=== PATIENT | male | born 1990 | race Caucasian/White ===

== ENCOUNTER 2017-11-30 08:01 | Emergency (ER) | payer OTHER ==
--- NOTE | 2017-11-30 08:04 | ER Report ---
History and Physical Time Seen By : 08:04 HPI/ROS 27-year-old male who recently moved to [place] to work at the [employer] [facility] presents to the emergency department with pain in his right flank. He states that he was diagnosed with a 7 mm ureteral calculi approximately 4 days prior to moving. He states that he was trying to hold off on follow-up until his [employer] insurance started this upcoming week. However the pain got so severe early this morning that he made the decision to come to the emergency department. He was diagnosed in his home in [place]. He was placed on Flomax and Vicodin for the pain. He also feels tremendous pressure when trying to urinate. He denies fever or chills. No dysuria or gross hematuria. No abdominal pain. Remainder of the 14 system rev: Yes Allergies: Coded Allergies: No Known Drug Allergies (Unverified , 11/30/17) Home Meds Active Scripts Hydrocodone Bit/Acetaminophen (HYDROCODON-ACETAMINOPHEN 5-325) 1 Each Tablet, 1 EACH PO Q4H PRN for PAIN, #12 TAB 0 Refills Prov:ALFA MENDENHALL MD 11/30/17 Ketorolac Tromethamine (KETOROLAC TROMETHAMINE) 10 Mg Tab, 10 MG PO Q6H PRN for PAIN, #12 TAB 0 Refills Prov:ALFA MENDENHALL MD 11/30/17 Reported Medications Promethazine Hcl (PROMETHAZINE HCL) 25 Mg Tablet, 25 MG PO PRN, TAB 11/30/17 Ibuprofen (IBUPROFEN) 800 Mg Tablet, 1 TAB PO Q8H, TAB 11/30/17 Hydrocodone Bit/Acetaminophen (HYDROCODON-ACETAMINOPHEN 5-325) 1 Each Tablet, 1 EACH PO PRN, TAB 11/30/17 Tamsulosin Hcl (FLOMAX) 0.4 Mg Cap.er.24h, 0.4 MG PO QDAY, CAP 11/30/17 Reviewed Nurses Notes: Yes Old Medical Records Reviewed: Yes Hx Smoking: No Smoking Status: Never Smoker Exposure to Second Hand Smoke?: No Hx Substance Use Disorder: No Hx Alcohol Use: No Constitutional Vital Sign - Last 24 Hours 11/30/17 11/30/17 11/30/17 11/30/17 08:06 08:07 08:30 08:31 Temp 97.3 Pulse 81 78 Resp 24 B/P (MAP) 147/102 147/102 (117) 143/98 (113) Pulse Ox 94 98 O2 Delivery Room Air 11/30/17 11/30/17 11/30/17 11/30/17 08:48 09:00 09:01 09:30 B/P (MAP) 147/98 (114) 129/85 (100) 130/83 (99) Pulse Ox 93 11/30/17 11/30/17 11/30/17 11/30/17 09:31 10:00 10:05 10:30 Pulse 86 94 B/P (MAP) 128/80 (96) 123/85 (98) Pulse Ox 91 95 11/30/17 11/30/17 11/30/17 11/30/17 10:35 11:00 11:05 12:34 Pulse 85 104 B/P (MAP) 112/74 (87) 126/82 (97) Pulse Ox 91 94 11/30/17 13:00 B/P (MAP) 129/73 (91) Physical Exam General Appearance: The patient is alert, has no immediate need for airway pr otection and no current signs of toxicity. Eyes: Pupils equal and round no injection. Respiratory: Chest is non tender, lungs are clear to auscultation. Cardiac: regular rate and rhythm Gastrointestinal: Abdomen is soft and non tender, no masses, bowel sounds normal. Musculoskeletal: Right flank TTP Extremities have full range of motion and are non tender. Skin: No rashes or lesions. DIFFERENTIAL DIAGNOSIS: After history and physical exam differential diagnosis was considered for back pain including but not limited to muscular pain, herniated disc, spine fracture, intra-abdominal causes, kidney stone, and urinary tract infection. Medical Decision Making Data Points Laboratory Hematology Test 11/30/17 12:10 Urine Color Yellow Urine Clarity Clear Urine pH 5.0 pH (4.8-9.5) Urine Specific Ulmer 1.011 Urine Protein Negative mg/dL (NEGATIVE) Urine Glucose (UA) Negative mg/dL (NEGATIVE) Urine Ketones 20 mg/dL (NEGATIVE) Urine Blood Moderate (NEGATIVE) Urine Nitrite Negative (NEGATIVE) Urine Bilirubin Negative (NEGATIVE) Urine Urobilinogen Negative mg/dL (0.2-1.9) Urine Leukocyte Esterase Negative (NEGATIVE) Urine RBC 1 /HPF (0-2/HPF) Urine WBC 1 /HPF (0-5/HPF) Urine Squamous Epithelial Cells Moderate /LPF (</=FEW) Urine Bacteria Negative /HPF (NONE-FEW) Urine Hyaline Casts Few /LPF (NONE-FEW) Urine Mucus Few /HPF (NONE-FEW) Chemistry Test 11/30/17 12:10 Urine Color Yellow Urine Clarity Clear Urine pH 5.0 pH (4.8-9.5) Urine Specific Ulmer 1.011 Urine Protein Negative mg/dL (NEGATIVE) Urine Glucose (UA) Negative mg/dL (NEGATIVE) Urine Ketones 20 mg/dL (NEGATIVE) Urine Blood Moderate (NEGATIVE) Urine Nitrite Negative (NEGATIVE) Urine Bilirubin Negative (NEGATIVE) Urine Urobilinogen Negative mg/dL (0.2-1.9) Urine Leukocyte Esterase Negative (NEGATIVE) Urine RBC 1 /HPF (0-2/HPF) Urine WBC 1 /HPF (0-5/HPF) Urine Squamous Epithelial Cells Moderate /LPF (</=FEW) Urine Bacteria Negative /HPF (NONE-FEW) Urine Hyaline Casts Few /LPF (NONE-FEW) Urine Mucus Few /HPF (NONE-FEW) Urinalysis Test 11/30/17 12:10 Urine Color Yellow Urine Clarity Clear Urine pH 5.0 pH (4.8-9.5) Urine Specific Ulmer 1.011 Urine Protein Negative mg/dL (NEGATIVE) Urine Glucose (UA) Negative mg/dL (NEGATIVE) Urine Ketones 20 mg/dL (NEGATIVE) Urine Blood Moderate (NEGATIVE) Urine Nitrite Negative (NEGATIVE) Urine Bilirubin Negative (NEGATIVE) Urine Urobilinogen Negative mg/dL (0.2-1.9) Urine Leukocyte Esterase Negative (NEGATIVE) Urine RBC 1 /HPF (0-2/HPF) Urine WBC 1 /HPF (0-5/HPF) Urine Squamous Epithelial Cells Moderate /LPF (</=FEW) Urine Bacteria Negative /HPF (NONE-FEW) Urine Hyaline Casts Few /LPF (NONE-FEW) Urine Mucus Few /HPF (NONE-FEW) ED Course/Re-evaluation ED Course 6 mm ureteral calculi found on CT scan. The patient's pain was relieved with Toradol, Zofran, and morphine. He was having difficulty urinating throughout his stay. He stated that he felt tremendous pressure on his bladder. After 2 L of normal saline and taking by mouth fluids, the patient was able to urinate. After urinating he states that his pain was relieved. I think he likely passed a stone in the emergency department. I will give him a refill of his medications in case his pain returns. Otherwise follow-up with a urologist. Decision to Disposition Date: Nov 30, 2017 Decision to Disposition Time: 12:52 Depart Departure Latest Vital Signs Vital Signs Date Time Temp Pulse Resp B/P (MAP) Pulse Ox O2 Delivery O2 Flow Rate FiO2 11/30/17 13:00 129/73 (91) 11/30/17 11:05 104 94 11/30/17 08:06 97.3 24 Room Air Impression: Primary Impression: Ureteral stone with hydronephrosis Condition: Improved Disposition: HOME OR SELF-CARE New Scripts Hydrocodone Bit/Acetaminophen (HYDROCODON-ACETAMINOPHEN 5-325) 1 Each Tablet 1 EACH PO Q4H PRN for PAIN, #12 TAB 0 Refills Prov: ALFA MENDENHALL MD 11/30/17 Ketorolac Tromethamine (KETOROLAC TROMETHAMINE) 10 Mg Tab 10 MG PO Q6H PRN for PAIN, #12 TAB 0 Refills Prov: ALFA MENDENHALL MD 11/30/17 Patient Instructions: Ureteral Stones (ED) ALFA MENDENHALL MD Nov 30, 2017 08:04
[2017-11-30] MEDS ORDERED: ONDANSETRON 4 MG/2 ML VIAL IVP ONE (08:05)
[2017-11-30] MEDS ORDERED: KETOROLAC 30 MG/ML VIAL IVP ONE (08:05)
[2017-11-30] MEDS ORDERED: NS(*) 0.9% 1000 ML BAG 1,000 ML IV ONE (08:05)
[2017-11-30] MEDS ORDERED: MORPHINE 4 MG/ML SDV IVP ONE (08:25)
--- NOTE | 2017-11-30 09:07 | RADIOLOGY IMAGING REPORT ---
FACILITY: [facility] [place] PATIENT NAME: Rajeev Del Valle : 1990 MR: [id number] V: [id number] EXAM DATE: ORDERING PHYSICIAN: ALFA MENDENHALL TECHNOLOGIST: [place] [facility] [place] Rajeev Del Valle : 1990 Visit/Account:[id number] Date of Sevice: 11/30/2017 ABDOMEN/PELVIS W/O CONTRAST COMPARISONS: None. ADDITIONAL PERTINENT HISTORY: Right-sided flank pain consistent with renal stone. TECHNIQUE: Multiple axial images are obtained from the lung bases through the lesser trochanters with out IV contrast. One of the following dose optimization techniques was utilized in the performance o f this exam: Automated exposure control; adjustment of the mA and/or kV according to the patient's si ze; or use of an iterative reconstruction technique. Specific details can be referenced in the [facility]'s radiology CT exam operational policy. FINDINGS: Lung bases: Negative. Free air and free fluid: None. Liver: Negative for a noncontrasted examination.. Spleen: Negative for a noncontrasted examination. Adrenal glands: Negative. Kidneys, ureters and urinary bladder: Moderate right-sided hydronephrosis and moderate dilatation of the proximal right ureter to the level of the mid right ureter where there are findings of nonobstruc ting 6 mm ureteral calculus. No other right-sided renal calculi. No calculi distal to this ureteral c alculus. No bladder calculi. Low-attenuation lesion measuring 3.3 cm involving the lower pole of the left kidney consistent with a simple cyst. Pancreas: Grossly negative. Gallbladder: Negative.. Bowel and mesentery: Negative. Lymph node assessment: Negative. Abdominal pelvic vasculature: Negative. Intrapelvic contents: Negative.. Surrounding soft tissues: Negative. Osseous structures: Negative. IMPRESSION: 1. 6 mm obstructing mid right ureteral calculus with moderate right-sided hydroureteronephrosis to th e level of the calculus. 2. Simple appearing cyst projecting off the lower pole of the left kidney. 3. No other acute intra-abdominal or intrapelvic process. Report Dictated By: Brock Solis MD at 11/30/2017 8:57 AM Report E-Signed By: Brock Solis MD at 11/30/2017 9:03 AM WSN:[id number]
[2017-11-30] MEDS ORDERED: TAMS0.4C25 PO (10:12)
[2017-11-30] MEDS ORDERED: PROM-110 PO (10:21)
[2017-11-30] MEDS ORDERED: HYDR-385 PO (10:21)
[2017-11-30] MEDS ORDERED: IBUP800T37 PO (10:21)
[2017-11-30] MEDS ORDERED: LOR5/325 PO (12:54)
[2017-11-30] MEDS ORDERED: KET10 PO (12:54)
[2017-11-30 13:00] VITALS: BP 129/73
== END 2017-11-30 13:07 | disposition home or self-care (01) ==
LOC: ER 08:58
DX: N13.2 Hydronephrosis with renal and ureteral calculous obstruction (principal)
CPT/HCPCS: 74176; 81001; 96361; 96374; 96375; 99284; J1885; J2270; J2405; J7030